=== PATIENT | female | born 1955 | race Caucasian/White ===

== ENCOUNTER 2021-12-20 07:53 | Day surgery (SDC) | payer MEDICARE, OTHER ==
[2021-12-06 10:58] VITALS: BMI 32.1
[~2021-12-20 07:53] MED LIST: LACTATED RINGERS 1,000 ML IV SCH
[2021-12-20 08:32] VITALS: TEMP 97.3
[2021-12-20 08:32] LABS: Glucose,Whole Blood 199 mg/dL (70-110)
[2021-12-20] MEDS ORDERED: LIDOCAINE 1% (10MG/ML) FOR IV START INTRADERMA ONE (08:32)
[2021-12-20] MEDS ORDERED: PROPOFOL 10 MG/ML 20 ML VIAL IV ONE (09:07)
--- NOTE | 2021-12-20 09:33 | P.PCN ---
Date of Procedure: 12/20/21 Procedure(s) Performed: BRIEF HISTORY: Patient is a 66-year-old pleasant female scheduled for an elective colonoscopy as a part of evaluation change in bowel habits for the last 2 years duration. PROCEDURE PERFORMED: Colonoscopy with snare polypectomy. PREOPERATIVE DIAGNOSIS: Change in bowel habits. IV sedation per Anesthesia. PROCEDURE: After informed consent was obtained, the patient, was brought into the endoscopy unit. IV sedation was administered by Anesthesia under continuous monitoring. Digital rectal examination was normal. Initially the Olympus CF-160 flexible video colonoscope was then inserted in the rectum, gradually advanced into the cecum without any difficulty. Careful examination was performed as the scope was gradually being withdrawn. Ileocecal valve and the appendiceal orifice were visualized and appeared normal. Prep was excellent. Mucosa of the cecum, ascending colon, appeared normal. In the hepatic flexure there was a 5 mm and 7 mm polyp removed by snare polypectomy. In the transverse colon there was a 5 mm 2 transverse colon polyps removed by snare polypectomy. In the sigmoid colon there was a 7 cm polypectomy. Rest of the transverse colon, descending colon, sigmoid colon, and rectum appeared normal. Scattered sigmoid diverticulosis seen. Retroflexion was performed in the rectum and no lesions were seen. The patient tolerated the procedure well. IMPRESSION: 5 mm and 7 mm hepatic flexure polyp status post polypectomy 5 mm 2 transverse colon polyp status post polypectomy 7 mm sigmoid: Polyp status post polypectomy Scattered sigmoid diverticulosis RECOMMENDATIONS: Findings of this examination were discussed with the patient is well as her family.. He was advised to follow with the biopsy results. If the biopsy reveals adenoma she can have a repeat colonoscopy in 3 years
[2021-12-20 09:43] VITALS: RESP 16
[2021-12-20 10:03] VITALS: BP 115/57; PULSE 62
== END 2021-12-20 10:45 ==
LOC: ORWHC2ENDO 07:53
PROVIDERS: ATTEND Internal Medicine Gastroenterology
DX: D12.3 Benign neoplasm of transverse colon (principal); D12.5 Benign neoplasm of sigmoid colon; K57.30 Diverticulosis of large intestine without perforation or abscess without bleeding; K59.9 Functional intestinal disorder, unspecified; I25.10 Atherosclerotic heart disease of native coronary artery without angina pectoris; J44.9 Chronic obstructive pulmonary disease, unspecified; E11.9 Type 2 diabetes mellitus without complications; Z87.19 Personal history of other diseases of the digestive system
CPT/HCPCS: 88305; 45385; J2704